=== PATIENT | female | born 1980 | race Caucasian/White ===

== ENCOUNTER 2019-02-19 14:48 | Emergency (ER) | payer OTHER ==
[~2019-02-19] VITALS: Ht 152.4 cm; Wt 64.0 kg
[2019-02-19] MEDS ORDERED: SODIUM CHLORIDE 0.9% 1,000 ML IV ONE (17:08)
[2019-02-19] MEDS ORDERED: KETOROLAC 30MG/ML VIAL IV ONE (17:15)
[2019-02-19 17:25] LABS: BASOPHILS % 0.4 % (0.0-2.0); EOSINOPHILS % 2.4 % (0.0-5.0); HEMATOCRIT. 39.3 % (36.0-48.0); HEMOGLOBIN. 14.1 g/dL (12.0-16.0); LYMPHOCYTES % 7.7 % (20.0-50.0); MEAN CORPUSCULAR HEMOGLOBIN 31.4 pg (28.0-32.0); MEAN CORPUSCULAR VOLUME 87.5 fL (81.0-99.0); MEAN PLATELET VOLUME 8.3 fl (7.4-10.4); MONOCYTES % 5.2 % (2.0-8.0); NEUTROPHILS % 84.3 % (40.0-76.0); PLATELET 284 x1000/uL (130-400); RED BLOOD CELL COUNT 4.49 mill/uL (4.2-5.4); RED CELL DISTRIBUTION WIDTH 13.9 % (11.6-14.6)
[2019-02-19 17:29] LABS: CHLORIDE 103 mEq/L (98-107)
[2019-02-19 22:45] LABS: CLARITY URINE CLOUDY (CLEAR); COLOR URINE DARK YELLOW (YELLOW); KETONES URINE TRACE (NEGATIVE); LEUKOCYTE ESTERASE URINE 1+ (NEGATIVE); NITRITE URINE NEGATIVE (NEGATIVE); OCCULT BLOOD URINE 1+ (NEGATIVE); PROTEIN URINE TRACE (NEGATIVE)
[2019-02-20 00:26] VITALS: BP 102/50
== END 2019-02-20 00:26 | disposition home or self-care (01) ==
LOC: ER 14:56
DX: N39.0 Urinary tract infection, site not specified (principal); K59.00 Constipation, unspecified; Z88.6 Allergy status to analgesic agent
CPT/HCPCS: 36415; 74021; 76830; 76856; 80053; 81003; 81025; 83690; 85025; 87086; 96374; 99284; J1885; J7030

== ENCOUNTER 2020-01-28 10:50 | Emergency (ER) | payer MEDICAID, OTHER ==
[~2020-01-28] VITALS: Ht 152.4 cm; Wt 70.0 kg
[2020-01-28] MEDS ORDERED: IBUPROFEN 600MG TABLET PO ONE (11:30)
[2020-01-28] MEDS ORDERED: TETANUS, DIPHTHERIA, PERTUSSIS VAC/PF 0.5ML (>7YR OLD) IM ONE (11:30)
[2020-01-28] MEDS ORDERED: LIDOCAINE 1%/EPI 1:100,000 10 ML VIAL IJ ONE (11:30)
[2020-01-28] MEDS ORDERED: BACITRACIN ZINC OINT UDPKT TOP ONE (11:30)
[2020-01-28] MEDS ORDERED: LIDOCAINE HCL/EPINEPHRINE 1%-EPI 1:100,000 20 ML VIAL INFIL SCH (11:45)
[2020-01-28 13:14] VITALS: BP 111/92
== END 2020-01-28 13:15 | disposition home or self-care (01) ==
LOC: ER 12:24
DX: S51.812A Laceration without foreign body of left forearm, initial encounter (principal); X58.XXXA Exposure to other specified factors, initial encounter; Y93.89 Activity, other specified; Y92.89 Other specified places as the place of occurrence of the external cause; Y99.8 Other external cause status; Z88.6 Allergy status to analgesic agent; Z88.5 Allergy status to narcotic agent
CPT/HCPCS: 12001; 73090; 81025; 90471; 90715; 99283; J3490

== ENCOUNTER 2022-02-09 18:36 | Emergency (ER) | payer MEDICAID ==
[~2022-02-09] VITALS: Ht 152.4 cm; Wt 64.0 kg
[2022-02-09] MEDS ORDERED: HYDROCODONE/ACETAMINOPHEN 5/325MG TABLET PO ONE (22:15)
[2022-02-09] MEDS ORDERED: TETANUS, DIPHTHERIA, PERTUSSIS VAC/PF 0.5ML (>10YR OLD) IM ONE (22:15)
[2022-02-09] MEDS ORDERED: BACITRACIN ZINC OINT UDPKT TOP ONE (22:15)
[2022-02-09 22:40] VITALS: BP 141/84
[2022-02-09] MEDS ORDERED: CEPH500C2 MT (23:18)
[2022-02-09] MEDS ORDERED: IBUP-2028 MT (23:18)
== END 2022-02-09 23:47 | disposition home or self-care (01) ==
LOC: ER 18:36
DX: S61.431A Puncture wound without foreign body of right hand, initial encounter (principal); W25.XXXA Contact with sharp glass, initial encounter; Y93.89 Activity, other specified; Y92.89 Other specified places as the place of occurrence of the external cause
CPT/HCPCS: 73120; 90471; 90715; 99283